=== PATIENT | female | born 1960 | race African-American/Black ===

== ENCOUNTER 2017-11-09 11:41 | Inpatient (IN) | payer OTHER ==
[~2017-11-09] VITALS: Ht 157.5 cm; Wt 102.6 kg
[~2017-11-09 11:41] MED LIST: ASPI-1159 PO; DILANTIN PO
[2017-11-09] MEDS ORDERED: ALBUTEROL (0.083%) 2.5MG/3ML NEB HHN STA ×3 (11:49→15:41)
[2017-11-09] MEDS ORDERED: IPRATROPIUM BROMIDE (0.02%) 0.5MG/2.5ML NEB HHN STA ×2 (11:49→12:27)
[2017-11-09] MEDS ORDERED: ALBUTEROL (0.5%) 2.5MG/0.5ML NEB HHN ONE (12:03)
[2017-11-09] MEDS ORDERED: IPRATROPIUM/ALBUTEROL 0.5-3(2.5)MG/3ML NEB ONE ×2 (12:03→15:43)
[2017-11-09] MEDS ORDERED: MORPHINE SULFATE 4 MG/ML CPJ (NOT FOR IM USE) IV STA (12:27)
[2017-11-09] MEDS ORDERED: METHYLPREDNISOLONE SOD SUCC 125 MG/2 ML VIAL IV STA (12:27)
[2017-11-09] MEDS ORDERED: ONDANSETRON HCL 4MG/2ML VIAL IV STA (12:27)
[2017-11-09] MEDS ORDERED: BENZONATATE 200MG CAPSULE PO ONE (12:30)
[2017-11-09] MEDS ORDERED: LEVOFLOXACIN 750MG PREMIX 150 ML IV ONE (12:30)
[2017-11-09 12:37] LABS: BASOPHILS % 0.9 % (0.0-2.0); EOSINOPHILS % 0.1 % (0.0-5.0); HEMATOCRIT. 37.1 % (36.0-48.0); LYMPHOCYTES % 20.6 % (20.0-50.0); MEAN CORPUSCULAR HEMOGLOBIN 31.7 pg (28.0-32.0); MEAN CORPUSCULAR VOLUME 90.7 fL (81.0-99.0); MEAN PLATELET VOLUME 8.2 fl (7.4-10.4); MONOCYTES % 11.8 % (2.0-8.0); NEUTROPHILS % 66.6 % (40.0-76.0); PLATELET 212 x1000/uL (130-400); RED BLOOD CELL COUNT 4.09 mill/uL (4.2-5.4); RED CELL DISTRIBUTION WIDTH 13.8 % (11.6-14.6)
[2017-11-09 12:42] LABS: CHLORIDE 106 mEq/L (98-107)
[2017-11-09 12:56] LABS: PROTHROMBIN TIME 10.4 sec (9.4-11.6)
[2017-11-09] MEDS ORDERED: FUROSEMIDE 40MG/4ML VIAL IVP ONE (15:42)
[2017-11-09] MEDS ORDERED: GUAIFENESIN-DM 200MG-20MG/10ML UDC PO PRN (16:00)
[2017-11-09] MEDS ORDERED: IPRATROPIUM/ALBUTEROL 0.5-3(2.5)MG/3ML NEB HHN PRN (16:00)
[2017-11-09] MEDS ORDERED: CLONIDINE 0.1MG TABLET PO PRN (16:00)
[2017-11-09] MEDS ORDERED: ONDANSETRON HCL 4MG/2ML VIAL IV PRN (16:00)
[2017-11-09] MEDS ORDERED: MORPHINE SULFATE 2 MG/ML CPJ (NOT FOR IM USE) IV PRN (16:00)
[2017-11-09] MEDS ORDERED: LEVOFLOXACIN 500MG TABLET PO SCH (18:00)
[2017-11-09 18:09] VITALS: BP 120/82
[2017-11-09 18:18] VITALS: BP 120/82
[2017-11-09 20:00] VITALS: BP 146/76
[2017-11-09] MEDS: METHYLPREDNISOLONE SOD SUCC 40 MG/ML VIAL IV SCH (20:03)
[2017-11-09] MEDS: ENOXAPARIN 30MG/0.3ML SYR SUBCUT SCH (20:03)
[2017-11-09] MEDS ORDERED: CARISOPRODOL 350 MG TABLET PO PRN (20:30)
[2017-11-09] MEDS: BUDESONIDE 0.5MG/2ML NEB HHN SCH (20:37)
[2017-11-09] MEDS: IPRATROPIUM/ALBUTEROL 0.5-3(2.5)MG/3ML NEB HHN SCH (20:38)
[2017-11-10] VITALS (8 sets, daily range): BP systolic 110–155; BP diastolic 66–93
[2017-11-10] MEDS: IPRATROPIUM/ALBUTEROL 0.5-3(2.5)MG/3ML NEB HHN SCH ×6 (01:02→19:48)
[2017-11-10] MEDS: METHYLPREDNISOLONE SOD SUCC 40 MG/ML VIAL IV SCH ×3 (05:23→20:48)
[2017-11-10] MEDS ORDERED: PHENYTOIN SODIUM EXTENDED 100MG CAPSULE PO SCH (09:00)
[2017-11-10] MEDS ORDERED: ASPIRIN 81MG TABLET PO SCH (09:00)
[2017-11-10] MEDS: ENOXAPARIN 30MG/0.3ML SYR SUBCUT SCH ×2 (09:07→20:48)
[2017-11-10] MEDS: BUDESONIDE 0.5MG/2ML NEB HHN SCH ×2 (09:51→19:48)
[2017-11-10] MEDS ORDERED: NICOTINE 21MG PATCH TD SCH (13:00)
[2017-11-10] MEDS ORDERED: LEVOFLOXACIN 500MG TABLET PO SCH (13:00)
[2017-11-10] MEDS: HYDROCODONE/ACETAMINOPHEN 5/325MG TABLET PO PRN ×2 (13:42→20:32)
[2017-11-11] MEDS ORDERED: FUROSEMIDE 40MG TABLET PO SCH (09:00)
== END 2017-11-10 21:50 | disposition short-term general hospital (02) | DRG 140 ==
LOC: ER 12:00 → 6WST 15:34 → ENRESERV 16:59
PROVIDERS: ADMIT Internal Medicine; ATTEND Internal Medicine
DX: J44.1 Chronic obstructive pulmonary disease with (acute) exacerbation (principal); I50.23 Acute on chronic systolic (congestive) heart failure; Z68.41 Body mass index [BMI] 40.0-44.9, adult; E44.0 Moderate protein-calorie malnutrition; I42.9 Cardiomyopathy, unspecified; E66.01 Morbid (severe) obesity due to excess calories; E78.5 Hyperlipidemia, unspecified; I11.0 Hypertensive heart disease with heart failure; F17.210 Nicotine dependence, cigarettes, uncomplicated; G40.909 Epilepsy, unspecified, not intractable, without status epilepticus; Z79.899 Other long term (current) drug therapy; Z79.82 Long term (current) use of aspirin; Z71.6 Tobacco abuse counseling; Z71.3 Dietary counseling and surveillance
CPT/HCPCS: 36415; 71045; 80053; 80185; 83036; 83605; 83880; 84484; 85025; 85610; 87040; 93005; 93306; 94640; 96365; 96375; 99291; J1650; J1956; J2270; J2405; J2920; J2930; J7611; J7620; J7626

== ENCOUNTER 2021-12-02 08:27 | Emergency (ER) | payer MEDICAID, OTHER ==
[~2021-12-02] VITALS: Ht 172.7 cm; Wt 99.0 kg
[~2021-12-02 08:27] MED LIST changes: -ASPI-1159 PO; +ASPI-1497 PO
[2021-12-02] MEDS ORDERED: MORPHINE SULFATE 4 MG/ML CPJ (NOT FOR IM USE) IV ONE (08:45)
[2021-12-02 09:07] LABS: BASOPHILS % 0.8 % (0.0-2.0); EOSINOPHILS % 0.9 % (0.0-5.0); HEMATOCRIT. 37.3 % (36.0-48.0); HEMOGLOBIN. 13.1 g/dL (12.0-16.0); LYMPHOCYTES % 35.1 % (20.0-50.0); MEAN CORPUSCULAR HEMOGLOBIN 32.4 pg (28.0-32.0); MEAN CORPUSCULAR VOLUME 92.4 fL (81.0-99.0); MEAN PLATELET VOLUME 7.8 fl (7.4-10.4); MONOCYTES % 14.1 % (2.0-8.0); NEUTROPHILS % 49.1 % (40.0-76.0); PLATELET 187 x1000/uL (130-400); RED BLOOD CELL COUNT 4.04 mill/uL (4.2-5.4); RED CELL DISTRIBUTION WIDTH 13.7 % (11.6-14.6)
[2021-12-02 09:15] LABS: CHLORIDE 112 mEq/L (98-107)
[2021-12-02] MEDS ORDERED: ACETAMINOPHEN 325MG TABLET PO ONE (17:00)
[2021-12-02] MEDS ORDERED: NITROGLYCERIN 0.4MG TABLET SL SL ONE (21:30)
[2021-12-02] MEDS ORDERED: ASPIRIN 81MG TABLET PO ONE (21:30)
[2021-12-02] MEDS ORDERED: ASPIRIN 81MG TABLET ONE (22:35)
[2021-12-03 02:00] VITALS: BP 114/63
== END 2021-12-03 02:00 | disposition short-term general hospital (02) ==
LOC: ER 08:27
DX: R07.89 Other chest pain (principal); R05.9 Cough, unspecified; R06.02 Shortness of breath; I11.0 Hypertensive heart disease with heart failure; I50.9 Heart failure, unspecified
CPT/HCPCS: 36415; 71101; 80053; 83880; 84484; 85025; 93005; 96374; 99285; J2270

== ENCOUNTER 2022-08-24 12:07 | Inpatient (IN) | payer OTHER ==
[~2022-08-24] VITALS: Ht 157.5 cm; Wt 90.0 kg
[2022-08-24 13:45] LABS: BASOPHILS % 0.7 % (0.0-2.0); EOSINOPHILS % 0.5 % (0.0-5.0); HEMATOCRIT. 38.1 % (36.0-48.0); HEMOGLOBIN. 12.7 g/dL (12.0-16.0); LYMPHOCYTES % 27.3 % (20.0-50.0); MEAN CORPUSCULAR HEMOGLOBIN 32.1 pg (28.0-32.0); MEAN CORPUSCULAR VOLUME 96.3 fL (81.0-99.0); MEAN PLATELET VOLUME 8.3 fl (7.4-10.4); MONOCYTES % 11.5 % (2.0-8.0); PLATELET 219 x1000/uL (130-400); RED BLOOD CELL COUNT 3.96 mill/uL (4.2-5.4); RED CELL DISTRIBUTION WIDTH 15.1 % (11.6-14.6)
[2022-08-24 13:57] LABS: CHLORIDE 109 mEq/L (98-107)
[2022-08-24] MEDS ORDERED: FUROSEMIDE 40MG/4ML VIAL IV ONE (15:00)
[2022-08-24] MEDS ORDERED: ASPIRIN 81MG TABLET PO ONE (15:00)
[2022-08-24] MEDS ORDERED: ACETAMINOPHEN 325MG TABLET PO ONE (20:30)
[2022-08-25] MEDS ORDERED: ALBUTEROL (0.083%) 2.5MG/3ML NEB HHN PRN (01:30)
[2022-08-25] MEDS ORDERED: IPRATROPIUM BROMIDE (0.02%) 0.5MG/2.5ML NEB HHN PRN (01:30)
[2022-08-25] MEDS: ALBUTEROL (0.083%) 2.5MG/3ML NEB HHN SCH ×6 (01:55→21:02)
[2022-08-25] MEDS: IPRATROPIUM BROMIDE (0.02%) 0.5MG/2.5ML NEB HHN SCH ×6 (01:55→21:02)
[2022-08-25 02:22] VITALS: BP 123/78
[2022-08-25] MEDS ORDERED: ACETAMINOPHEN 325MG TABLET PO PRN (02:45)
[2022-08-25] MEDS ORDERED: COR3 PO (02:49)
[2022-08-25] MEDS ORDERED: LOSA50TA41 PO (02:49)
[2022-08-25 04:00] VITALS: BP 118/58
[2022-08-25] MEDS ORDERED: IPRATROPIUM/ALBUTEROL 0.5-3(2.5)MG/3ML NEB HHN SCH (04:00)
[2022-08-25 06:19] LABS: BASOPHILS % 0.7 % (0.0-2.0); EOSINOPHILS % 0.5 % (0.0-5.0); HEMATOCRIT. 35.6 % (36.0-48.0); HEMOGLOBIN. 12.1 g/dL (12.0-16.0); LYMPHOCYTES % 24.9 % (20.0-50.0); MEAN CORPUSCULAR HEMOGLOBIN 32.6 pg (28.0-32.0); MEAN CORPUSCULAR VOLUME 95.7 fL (81.0-99.0); MEAN PLATELET VOLUME 8.3 fl (7.4-10.4); MONOCYTES % 6.8 % (2.0-8.0); NEUTROPHILS % 67.1 % (40.0-76.0); PLATELET 196 x1000/uL (130-400); RED BLOOD CELL COUNT 3.72 mill/uL (4.2-5.4); RED CELL DISTRIBUTION WIDTH 14.8 % (11.6-14.6)
[2022-08-25 06:33] LABS: CHLORIDE 109 mEq/L (98-107)
[2022-08-25 08:00] VITALS: BP 108/66
[2022-08-25] MEDS ORDERED: CARVEDILOL 3.125 MG TABLET PO SCH (09:00)
[2022-08-25] MEDS: ASPIRIN 81MG TABLET PO SCH (09:09)
[2022-08-25] MEDS: POTASSIUM CHLORIDE 20MEQ TABLET SR PO SCH (09:10)
[2022-08-25] MEDS: LOSARTAN POTASSIUM 50 MG TABLET PO SCH (09:11)
[2022-08-25] MEDS: FUROSEMIDE 40MG/4ML VIAL IVP SCH ×2 (09:11→20:41)
[2022-08-25] MEDS: HYDROCODONE/ACETAMINOPHEN 5/325MG TABLET PO PRN ×2 (10:52→22:35)
[2022-08-25 12:00] VITALS: BP 101/59
[2022-08-25] MEDS ORDERED: NALOXONE HCL 0.4MG/ML VIAL IV PRN (12:30)
[2022-08-25 16:00] VITALS: BP 122/101
[2022-08-25 20:00] VITALS: BP 126/89
[2022-08-25 20:50] LABS: *AMPHETAMINES SCREEN URINE NEGATIVE (NEGATIVE); *BARBITURATES SCREEN URINE NEGATIVE (NEGATIVE); *BENZODIAZEPINES SCREEN URINE PRESUMTIVE POSITIVE (NEGATIVE); *COCAINE SCREEN URINE PRESUMTIVE POSITIVE (NEGATIVE); CANNABINOID URINE SCREEN PRESUMTIVE POSITIVE (NEGATIVE); METHADONE URINE SCREEN NEGATIVE (NEGATIVE); OPIATES URINE SCREEN PRESUMTIVE POSITIVE (NEGATIVE); PHENCYCLIDINE URINE SCREEN NEGATIVE (NEGATIVE)
[2022-08-25] MEDS ORDERED: PHENYTOIN SODIUM EXTENDED 100MG CAPSULE PO SCH (21:00)
[2022-08-26] VITALS: BP 113/74
[2022-08-26 04:00] VITALS: BP 101/53
[2022-08-26] MEDS: IPRATROPIUM BROMIDE (0.02%) 0.5MG/2.5ML NEB HHN SCH ×3 (04:46→12:52)
[2022-08-26] MEDS: ALBUTEROL (0.083%) 2.5MG/3ML NEB HHN SCH ×3 (04:46→12:51)
[2022-08-26] MEDS ORDERED: GUAIFENESIN/CODEINE 200-20MG/10ML UDC PO PRN (06:15)
[2022-08-26] MEDS: HYDROCODONE/ACETAMINOPHEN 5/325MG TABLET PO PRN (06:16)
[2022-08-26 08:00] VITALS: BP 133/81
[2022-08-26] MEDS ORDERED: CARVEDILOL 6.25 MG TABLET PO SCH ×2 (09:00→21:00)
[2022-08-26] MEDS: FUROSEMIDE 40MG/4ML VIAL IVP SCH (09:11)
[2022-08-26] MEDS: LOSARTAN POTASSIUM 50 MG TABLET PO SCH (09:11)
[2022-08-26] MEDS: ASPIRIN 81MG TABLET PO SCH (09:12)
[2022-08-26] MEDS: POTASSIUM CHLORIDE 20MEQ TABLET SR PO SCH (09:12)
[2022-08-26 12:00] VITALS: BP 103/69
[2022-08-26] MEDS ORDERED: SPIRONOLACTONE 25MG TABLET PO SCH (13:30)
[2022-08-26] MEDS ORDERED: LOSA50TA3 PO (13:37)
[2022-08-26] MEDS ORDERED: COR6 PO (13:37)
[2022-08-26] MEDS ORDERED: FURO-151 MT (13:37)
[2022-08-26] MEDS ORDERED: P20 MT (13:37)
[2022-08-26] MEDS ORDERED: SPIR25TA PO (13:37)
[2022-08-26] MEDS ORDERED: POTA-204 PO (13:37)
[2022-08-26] MEDS ORDERED: PREDNISONE 20MG TABLET PO SCH (14:00)
[2022-08-26 14:22] VITALS: BP 107/65
== END 2022-08-26 17:06 | disposition home or self-care (01) | DRG 194 ==
LOC: ER 12:07 → 7WST 08-25 02:29
PROVIDERS: ADMIT Internal Medicine; ATTEND Internal Medicine
DX: I11.0 Hypertensive heart disease with heart failure (principal); E44.1 Mild protein-calorie malnutrition; E66.01 Morbid (severe) obesity due to excess calories; I50.23 Acute on chronic systolic (congestive) heart failure; G40.909 Epilepsy, unspecified, not intractable, without status epilepticus; J44.9 Chronic obstructive pulmonary disease, unspecified; Z20.822 Contact with and (suspected) exposure to COVID-19; F32.A Depression, unspecified; F17.210 Nicotine dependence, cigarettes, uncomplicated; F14.920 Cocaine use, unspecified with intoxication, uncomplicated; Z79.899 Other long term (current) drug therapy; Z68.36 Body mass index [BMI] 36.0-36.9, adult
CPT/HCPCS: 36415; 71045; 80048; 80053; 80305; 83880; 84484; 85025; 87426; 93005; 93306; 94640; 99291; C9803; J1940

== ENCOUNTER 2022-10-14 07:06 | Emergency (ER) | payer OTHER ==
[~2022-10-14] VITALS: Ht 170.2 cm; Wt 89.0 kg
[~2022-10-14 07:06] MED LIST changes: +COR6 PO; +FURO-151 MT; +LOSA50TA3 PO; +LOSA50TA41 PO; +P20 MT; +POTA-204 PO; +SPIR25TA PO
[2022-10-14] MEDS: ALBUTEROL (0.5%) 2.5MG/0.5ML NEB HHN ONE ×2 (09:20→10:01)
[2022-10-14 09:54] LABS: BASOPHILS % 0.3 % (0.0-2.0); EOSINOPHILS % 0.6 % (0.0-5.0); HEMATOCRIT. 34.9 % (36.0-48.0); HEMOGLOBIN. 11.5 g/dL (12.0-16.0); LYMPHOCYTES % 25.4 % (20.0-50.0); MEAN CORPUSCULAR VOLUME 96.7 fL (81.0-99.0); MEAN PLATELET VOLUME 8.6 fl (7.4-10.4); MONOCYTES % 11.7 % (2.0-8.0); PLATELET 173 x1000/uL (130-400)
[2022-10-14 10:03] LABS: CHLORIDE 111 mEq/L (98-107)
[2022-10-14 10:12] LABS: ETHANOL BLOOD < 10 mg/dL
[2022-10-14] MEDS ORDERED: FUROSEMIDE 40MG/4ML VIAL IVP NR (10:30)
[2022-10-14 13:13] VITALS: BP 140/83
== END 2022-10-14 14:03 | disposition short-term general hospital (02) ==
LOC: ER 07:06 → EDBEDREQ 11:19 → ER 14:03
DX: I11.0 Hypertensive heart disease with heart failure (principal); I50.9 Heart failure, unspecified; F12.10 Cannabis abuse, uncomplicated; Z20.822 Contact with and (suspected) exposure to COVID-19; Z00.00 Encounter for general adult medical examination without abnormal findings
CPT/HCPCS: 36415; 71045; 80053; 80320; 83880; 84484; 85025; 87426; 93005; 94640; 96374; 99285; C9803; J1940; Z7610; G0480

== ENCOUNTER 2023-01-10 14:58 | Emergency (ER) | payer OTHER ==
[~2023-01-10] VITALS: Ht 162.6 cm; Wt 75.0 kg
[~2023-01-10 14:58] MED LIST changes: +LOSA-413 PO; -LOSA50TA3 PO
[2023-01-10 15:02] VITALS: O2SAT 100
[2023-01-10 15:41] LABS: CHLORIDE 113 mEq/L (98-107)
[2023-01-10 15:42] LABS: BASOPHILS % 0.5 % (0.0-2.0); EOSINOPHILS % 0.6 % (0.0-5.0); HEMATOCRIT. 38.7 % (36.0-48.0); HEMOGLOBIN. 13.2 g/dL (12.0-16.0); LYMPHOCYTES % 20.4 % (20.0-50.0); MEAN CORPUSCULAR HEMOGLOBIN 32.2 pg (28.0-32.0); MEAN CORPUSCULAR VOLUME 94.1 fL (81.0-99.0); MEAN PLATELET VOLUME 8.4 fl (7.4-10.4); MONOCYTES % 8.9 % (2.0-8.0); NEUTROPHILS % 69.6 % (40.0-76.0); PLATELET 242 x1000/uL (130-400); RED BLOOD CELL COUNT 4.11 mill/uL (4.2-5.4); RED CELL DISTRIBUTION WIDTH 15.9 % (11.6-14.6)
[2023-01-10] MEDS ORDERED: MORPHINE SULFATE 4 MG/ML CPJ (NOT FOR IM USE) IV ONE (21:15)
[2023-01-10 22:45] VITALS: BP 115/75; PULSE 113; RESP 18; TEMP 98.3
== END 2023-01-10 22:55 | disposition short-term general hospital (02) ==
LOC: ER 14:58
DX: I21.3 ST elevation (STEMI) myocardial infarction of unspecified site (principal); I10 Essential (primary) hypertension; J44.1 Chronic obstructive pulmonary disease with (acute) exacerbation
CPT/HCPCS: 36415; 71045; 80053; 83880; 84484; 85025; 93005; 96374; 99291; J2270; Z7610